=== PATIENT | male | born 1995 | race Caucasian/White ===

== ENCOUNTER → 2021-05-30 | Outpatient (CLI) | payer BC ==
--- NOTE | 2021-05-30 14:54 | Diagnostic Imaging Report ---
INDICATION: Right ankle pain. TECHNIQUE: AP, oblique, and lateral views of the right ankle were obtained. FINDINGS: No fracture or acute bony abnormality is seen. IMPRESSION: Negative right ankle. Dictated by: Dictated on workstation # [id number]
== END ==
LOC: RAD 13:08
PROVIDERS: ATTEND Nurse Practitioner Family
DX: S99.911A Unspecified injury of right ankle, initial encounter (principal); X58.XXXA Exposure to other specified factors, initial encounter
CPT/HCPCS: 73610